=== PATIENT | male | born 1995 ===

== ENCOUNTER 2024-09-21 11:25 | Day surgery (SDC) | payer OTHER ==
[2024-09-14 10:31] VITALS: BP 137/79
[~2024-09-21] VITALS: Ht 30.5 cm; Wt 5.0 kg
[~2024-09-21 11:25] MED LIST: ZYRTEC10 M3 PO
[2024-09-21] MEDS ORDERED: DEXAMETHASONE SODIUM PHOSPHATE 4 MG/ML VIAL ONE (14:05)
== END 2024-09-21 19:00 | disposition home or self-care (01) ==
LOC: SURH 11:25 → O/R 11:25 → CIR.AMB 11:25 → SURH 11:45 → CIR.AMB 19:00 → O/R 19:00
PROVIDERS: ATTEND Surgery
DX: C73 Malignant neoplasm of thyroid gland (principal)

== ENCOUNTER 2024-11-20 10:14 | Day surgery (SDC) | payer OTHER ==
[2024-11-16 13:06] VITALS: BP 142/87
[~2024-11-20] VITALS: Ht 180.3 cm; Wt 68.0 kg
[2024-11-20] MEDS ORDERED: DEXAMETHASONE SODIUM PHOSPHATE 4 MG/ML VIAL IV ONE (15:30)
[2024-11-20] MEDS ORDERED: MORPHINE SULFATE 4 MG/ML VIAL IV ONE ×2 (16:50→17:20)
[2024-11-20 19:07] VITALS: BP 144/89; O2SAT 100
== END 2024-11-20 19:47 | disposition home or self-care (01) ==
LOC: SURH 10:14 → SURG 10:14 → CIR.AMB 10:14 → O/R 10:14 → SURH 11:45 → EDSTATUS 11:45 → SURG 16:49 → O/R 16:49 → SURG 18:51 → O/R 19:22 → SURG 19:22 → O/R 19:34 → SURG 19:34 → CIR.AMB 19:47 → O/R 19:47
PROVIDERS: ATTEND Surgery
DX: C73 Malignant neoplasm of thyroid gland (principal)